=== PATIENT | male | born 1955 | race Caucasian/White ===

== ENCOUNTER 2025-03-28 08:03 | Emergency (ER) | payer OTHER ==
[~2025-03-28] VITALS: Ht 182.9 cm; Wt 136.1 kg
[~2025-03-28 08:03] MED LIST: Percocet 5-3251 EACH PO
[2025-03-28] MEDS ORDERED: NS 1,000 ML IV SCH (08:25)
[2025-03-28 08:29] LABS: pH Blood Venous 7.44 (7.34-7.37)
[2025-03-28] MEDS ORDERED: Dexamethasone Sod Phos 10 MG/ML 1ML VIAL IV ONE (08:30)
[2025-03-28 08:40] LABS: BASOPHILS ABSOLUTE AUTO 0.05 K/mm3 (0.00-0.23); BASOPHILS PERCENT AUTO 0 % (0-2); EOSINOPHILS ABSOLUTE AUTO 0.12 K/mm3 (0.00-0.68); EOSINOPHILS PERCENT AUTO 1 % (0-6); Hematocrit 50.0 % (37.0-53.0); Hemoglobin 17.1 g/dL (13.5-17.5); IMMATURE GRAN ABSOLUTE AUTO 0.04 K/mm3 (0.00-0.10); IMMATURE GRAN PERCENT AUTO 0 % (0-1); LYMPHOCYTES ABSOLUTE AUTO 1.69 K/mm3 (0.84-5.20); LYMPHOCYTES PERCENT AUTO 14 % (21-46); MONOCYTES ABSOLUTE AUTO 1.03 K/mm3 (0.16-1.47); MONOCYTES PERCENT AUTO 9 % (4-13); Mean Corpuscular HGB Conc 34.2 g/dL (31.5-36.5); Mean Corpuscular Volume 90 fL (80-100); NEUTROPHILS ABSOLUTE AUTO 9.06 K/mm3 (1.96-9.15); NEUTROPHILS PERCENT AUTO 76 % (41-73); NRBC ABSOLUTE 0.00 K/mm3 (0.00-0.02); NRBC Auto 0.0 /100 WBC (0.0-0.2); Platelet Count 195 K/mm3 (150-400); RDW Coefficient Variation 13.0 % (11.7-14.2); RDW Standard Deviation 43.3 fL (35.1-46.3)
[2025-03-28 08:55] LABS: Alanine Aminotransfer (ALT/SGP 42.0 U/L (12-78); Albumin, Blood 3.5 g/dL (3.4-5.0); Albumin/Globulin Ratio 0.8 (0.8-1.8); Anion Gap 10.0 mmol/L (3-11); Aspartate Aminotrans (AST/SGOT 31.0 U/L (12-37); Bilirubin, Total 0.7 mg/dL (0.1-1.0); Blood Urea Nitrogen 16.0 mg/dL (8-24); CO2, Blood 23.0 mmol/L (21-32); Calcium, Blood 8.6 mg/dL (8.5-10.1); Chloride, Blood 106.0 mmol/L (98-108); Creatinine, Blood 1.25 mg/dL (0.60-1.20); Globulin, Blood 4.4 g/dL (2.2-4.0); Glucose, Blood 129.0 mg/dL (70-99); Potassium, Blood 4.0 mmol/L (3.5-5.5); Sodium, Blood 135.0 mmol/L (136-145); Total Protein, Blood 7.9 g/dL (6.4-8.2)
[2025-03-28] MEDS ORDERED: Atropine/Scopalam/Hyoscam/PB 5 ML UDC PO ONE (10:10)
[2025-03-28] MEDS ORDERED: Lidocaine 2% Viscous Soln 15 ML UDC PO ONE (10:10)
[2025-03-28] MEDS ORDERED: Ampicillin Sod/Sulbactam Sod 3 GM in NS 100 ML IV ONE (10:10)
[2025-03-28 11:00] VITALS: BP 142/90
[2025-03-28] MEDS ORDERED: PRED20 PO (11:09)
[2025-03-28] MEDS ORDERED: AMOCLA875 PO (11:09)
== END 2025-03-28 11:20 | disposition home or self-care (01) ==
LOC: ER 08:03
PROVIDERS: Student in an Organized Health Care Education/Training Program
DX: J34.0 Abscess, furuncle and carbuncle of nose (principal)
CPT/HCPCS: 70487; 71046; 80053; 82803; 83605; 83690; 84484; 85025; 93005; 93010; 96361; 96365-59; 96375; 99284-25; A9270; J0295; J1100; J7030; Q9967